=== PATIENT | male | born 1990 | race African-American/Black ===

== ENCOUNTER 2017-09-25 22:49 | Inpatient (IN) | payer MEDICAID ==
[~2017-09-25] VITALS: Ht 165.1 cm; Wt 215.5 kg
[~2017-09-25 22:49] MED LIST: HYDR-3933 PO; HYDR4TAB56 PO
[2017-09-25] MEDS ORDERED: SODIUM CHLORIDE 0.9% 1,000 ML IV ONE (23:54)
[2017-09-25] MEDS ORDERED: KETOROLAC 30MG/ML VIAL IV STA (23:54)
[2017-09-26] MEDS ORDERED: ASPIRIN 81MG TABLET PO ONE
[2017-09-26 00:48] LABS: BASOPHILS % 0.8 % (0.0-2.0); EOSINOPHILS % 2.9 % (0.0-5.0); HEMATOCRIT. 31.6 % (42.0-52.0); HEMOGLOBIN. 10.6 g/dL (14.0-18.0); LYMPHOCYTES % 32.2 % (20.0-50.0); MEAN CORPUSCULAR HEMOGLOBIN 27.1 pg (28.0-32.0); MEAN CORPUSCULAR VOLUME 80.9 fL (80.0-94.0); MEAN PLATELET VOLUME 9.7 fl (7.4-10.4); MONOCYTES % 6.9 % (2.0-8.0); NEUTROPHILS % 57.2 % (40.0-76.0); PLATELET 319 x1000/uL (130-400); RED CELL DISTRIBUTION WIDTH 16.9 % (11.6-14.6)
[2017-09-26 00:57] LABS: D-DIMER 0.56 mg/L FEU (<0.50); INR 1.1
[2017-09-26 01:08] LABS: CARBON DIOXIDE 32 mEq/L (21-32); CHLORIDE 104 mEq/L (98-107); ETHANOL BLOOD < 10 mg/dL; TROPONIN I 0.07 ng/mL (0.00-0.04)
[2017-09-26 02:12] LABS: CLARITY URINE CLEAR (CLEAR); COLOR URINE YELLOW (YELLOW); GLUCOSE URINE NEGATIVE (NEGATIVE); KETONES URINE NEGATIVE (NEGATIVE); LEUKOCYTE ESTERASE URINE 1+ (NEGATIVE); NITRITE URINE NEGATIVE (NEGATIVE); OCCULT BLOOD URINE NEGATIVE (NEGATIVE); PH URINE 7.5 (4.5-8.0); PROTEIN URINE NEGATIVE (NEGATIVE); SPECIFIC GRAVITY URINE 1.014 (1.005-1.030); UROBILINOGEN URINE 0.2 E.U./dL (0.2-1.0)
[2017-09-26 02:28] LABS: *AMPHETAMINES SCREEN URINE NEGATIVE (NEGATIVE); *BARBITURATES SCREEN URINE NEGATIVE (NEGATIVE); *BENZODIAZEPINES SCREEN URINE NEGATIVE (NEGATIVE); *COCAINE SCREEN URINE NEGATIVE (NEGATIVE); CANNABINOID URINE SCREEN NEGATIVE (NEGATIVE); METHADONE URINE SCREEN NEGATIVE (NEGATIVE); OPIATES URINE SCREEN PRESUMTIVE POSITIVE (NEGATIVE); PHENCYCLIDINE URINE SCREEN NEGATIVE (NEGATIVE)
[2017-09-26] MEDS ORDERED: CEFTRIAXONE 1 G PREMIX 50 ML IV SCH ×2 (03:45→17:00)
[2017-09-26] MEDS: MORPHINE SULFATE 10 MG/ML CPJ IV PRN ×3 (04:09→13:01)
[2017-09-26 10:45] VITALS: BP 146/92
[2017-09-26 10:58] VITALS: BP 146/92
[2017-09-26] MEDS ORDERED: HYDROCODONE/ACETAMINOPHEN 5/325MG TABLET PO PRN (11:00)
[2017-09-26] MEDS ORDERED: ENOXAPARIN 40MG/0.4ML SYR SUBCUT SCH ×2 (11:00→11:30)
[2017-09-26] MEDS ORDERED: ACETAMINOPHEN 325MG TABLET PO PRN (11:00)
[2017-09-26] MEDS ORDERED: MAGNESIUM/ALUMINUM HYDROXIDE/SIMETHICONE 30ML UDC PO PRN (11:00)
[2017-09-26] MEDS ORDERED: DOCUSATE SODIUM 100MG CAPSULE PO PRN (11:00)
[2017-09-26] MEDS ORDERED: CLONIDINE 0.1MG TABLET PO PRN (11:00)
[2017-09-26] MEDS ORDERED: GUAIFENESIN 200MG/10ML SUGAR FREE UDC PO PRN (11:00)
[2017-09-26] MEDS ORDERED: [UNRECOGNIZED DRUG - REMARK] XX SCH (11:15)
[2017-09-26] MEDS ORDERED: ASPIRIN 81MG EC TABLET PO SCH (11:30)
[2017-09-26] MEDS ORDERED: FUROSEMIDE 40MG/4ML VIAL IVP SCH (11:30)
[2017-09-26] MEDS ORDERED: LOSARTAN POTASSIUM 25 MG TABLET PO SCH (11:45)
[2017-09-26] MEDS ORDERED: CARVEDILOL 12.5MG TABLET PO SCH (11:45)
[2017-09-26] MEDS ORDERED: POTASSIUM CHLORIDE 20MEQ TABLET SR PO ONE (11:45)
[2017-09-26] MEDS ORDERED: POTASSIUM CHLORIDE 20MEQ TABLET SR PO SCH (11:45)
[2017-09-26] MEDS ORDERED: CARVEDILOL 3.125 MG TABLET PO SCH (12:10)
[2017-09-26] MEDS: IPRATROPIUM/ALBUTEROL 0.5-3(2.5)MG/3ML NEB INH SCH ×2 (12:15→17:04)
[2017-09-26 13:01] VITALS: BP 146/92
[2017-09-27] MEDS ORDERED: CEFTRIAXONE 1 G PREMIX 50 ML IV SCH (05:00)
[2017-09-27] MEDS ORDERED: POTASSIUM CHLORIDE 20MEQ TABLET SR PO SCH (09:00)
[2017-09-27] MEDS ORDERED: HYDROMORPHONE HCL/PF 2MG/ML CPJ IV NR (10:00)
== END 2017-09-26 20:30 | disposition left against medical advice (07) | DRG 194 ==
LOC: ER 22:49 → 8WST 09-26 01:56 → EDBEDREQTM 09-26 02:08 → ENRESERV 09-26 09:33
PROVIDERS: ADMIT Internal Medicine; ATTEND Internal Medicine
DX: I11.0 Hypertensive heart disease with heart failure (principal); M72.6 Necrotizing fasciitis; E11.9 Type 2 diabetes mellitus without complications; I50.33 Acute on chronic diastolic (congestive) heart failure; E66.01 Morbid (severe) obesity due to excess calories; G47.33 Obstructive sleep apnea (adult) (pediatric); Z60.2 Problems related to living alone; X58.XXXA Exposure to other specified factors, initial encounter; S93.402A Sprain of unspecified ligament of left ankle, initial encounter; J45.909 Unspecified asthma, uncomplicated; K21.9 Gastro-esophageal reflux disease without esophagitis; Z79.4 Long term (current) use of insulin; Z82.49 Family history of ischemic heart disease and other diseases of the circulatory system; Z83.3 Family history of diabetes mellitus; Z79.899 Other long term (current) drug therapy; Z90.89 Acquired absence of other organs; Z99.81 Dependence on supplemental oxygen; Y93.89 Activity, other specified; Y92.89 Other specified places as the place of occurrence of the external cause; Y99.8 Other external cause status; Z68.45 Body mass index [BMI] 70 or greater, adult; E44.1 Mild protein-calorie malnutrition
CPT/HCPCS: 36415; 71010; 73610; 80053; 80305; 81001; 82962; 83605; 83690; 83880; 84484; 85025; 85379; 85610; 93005; 93970; 94640; 94664; 96361; 96374; 96375; 96376; 99285; G0482; J0696; J1650; J1885; J1940; J2270; J7030; J7050; J7620